=== PATIENT | male | born 1985 | race African-American/Black ===

== ENCOUNTER 2022-08-17 13:28 | Emergency (ER) | payer SELFPAY | END 2022-08-17 14:41 | LOC: MW.ED 13:28 | DX: Z02.89 Encounter for other administrative examinations (principal); E11.9 Type 2 diabetes mellitus without complications; Z79.84 Long term (current) use of oral hypoglycemic drugs | CPT/HCPCS: 99283 ==

== ENCOUNTER 2022-09-20 13:20 | Inpatient (IN) | payer SELFPAY ==
[2022-09-20] MEDS ORDERED: Sodium Chloride 0.9% 1,000 ML IV ONE ×2 (13:22→13:24)
[2022-09-20] MEDS ORDERED: Ondansetron 4 MG/2 ML SDV IVPUSH ONE (13:22)
[2022-09-20] MEDS ORDERED: Labetalol 100 MG/20 ML MDV IVPUSH ONE (13:26)
[2022-09-20 14:18] LABS: HEMOGLOBIN A1C 11.7 %
[2022-09-20 14:23] LABS: CARBON DIOXIDE,CO2 19.5 mmol/L (21.0-32.0); POTASSIUM,K 4.2 mmol/L (3.5-5.1)
[2022-09-20] MEDS ORDERED: Insulin Regular in 0.9 % NACL 100 ML IV SCH ×2 (15:00→15:30)
[2022-09-20] MEDS ORDERED: Sodium Chloride 0.9% 2.5 ML Syringe FLUSH PRN (15:29)
[2022-09-20] MEDS ORDERED: Ondansetron 4 MG/2 ML SDV IVPUSH PRN (15:29)
[2022-09-20] MEDS ORDERED: Sodium Chloride 0.9% 10 ML Syringe FLUSH PRN (15:29)
[2022-09-20] MEDS ORDERED: Acetaminophen 325 MG Tab PO PRN (15:29)
[2022-09-20] MEDS ORDERED: 50% Dextrose in Water 50 ML Syringe IVPUSH PRN ×3 (15:34→21:50)
[2022-09-20] MEDS ORDERED: Enoxaparin 40 MG/0.4 ML Syringe SUBCUT SCH (16:00)
[2022-09-20] MEDS: Sodium Chloride 0.9% 1,000 ML IV SCH ×2 (17:01→21:48)
[2022-09-20 19:48] LABS: CARBON DIOXIDE,CO2 26.8 mmol/L (21.0-32.0); POTASSIUM,K 3.6 mmol/L (3.5-5.1)
[2022-09-20] MEDS ORDERED: Insulin Glargine,Hum.Rec.Anlog 100 UNIT/ML 3 ML Pen SUBCUT SCH (21:00)
[2022-09-20] MEDS ORDERED: Glucagon,Human Recombinant 1 MG Vial IM PRN ×2 (21:50)
[2022-09-21] MEDS ORDERED: Insulin Aspart 100 Units/ML 3 ML Pen SUBCUT SCH ×2 (07:30)
[2022-09-21 08:03] LABS: CARBON DIOXIDE,CO2 23.9 mmol/L (21.0-32.0); POTASSIUM,K 3.6 mmol/L (3.5-5.1)
[2022-09-21] MEDS: Insulin Aspart 100 Units/ML 3 ML Pen SUBCUT SCH ×2 (08:18→12:04)
== END 2022-09-21 14:18 | disposition home or self-care (01) | DRG 639 ==
LOC: MW.ED 13:20 → MW.ICU 14:56
PROVIDERS: ADMIT Internal Medicine; ATTEND Internal Medicine
DX: E11.10 Type 2 diabetes mellitus with ketoacidosis without coma (principal); I10 Essential (primary) hypertension; E66.8 Other obesity; Z20.822 Contact with and (suspected) exposure to COVID-19; Z68.34 Body mass index [BMI] 34.0-34.9, adult; Z91.14 Patient's other noncompliance with medication regimen; Z79.4 Long term (current) use of insulin; Z79.899 Other long term (current) drug therapy
CPT/HCPCS: 36415; 71045; 71045-26; 80048; 80053; 80061; 80307; 81003; 82009; 82803; 82947; 83036; 83605; 83690; 83735; 84100; 84484; 85025; 93005; 93010; 99221; 99238; 99291; A9270-GY; J1650; J1815; J1815-GY; J2405; J3490; J7030; U0002